=== PATIENT | female | born 1970 | race Caucasian/White ===

== ENCOUNTER → 2016-06-16 | Outpatient (CLI) | payer OTHER ==
--- NOTE | 2016-06-16 11:48 | REPMRS ---
Patient History The patient states she had a clinical breast exam in 06/03 Patient has history of other cancer at age 29. Family history of unknown cancer in paternal aunt at age 50 or over. Taking hormonal contraceptives for 25 years. Digital Woman Screen Mammo: June 16, 2016 - Exam #: [id number] Bilateral CC and MLO view(s) were taken. Technologist: Kaylene Daniel, Technologist Prior study comparison: June 05, 2015, digital woman screen mammo performed at [facility]. June 03, 2014, digital woman screen mammo performed at [facility]. May 27, 2013, digital woman screen mammo performed at [facility]. FINDINGS: The breast tissue is extremely dense which could obscure a lesion on mammography. There has been no change in the appearance of the mammogram from the prior studies. There is diffuse residual fibroglandular tissue which is fairly symmetric. There is no interval development of dominant mass, architectural distortion, or clustered microcalcification typical of malignancy. Scattered lymph nodes are seen in the axillae. No significant changes when compared with prior studies. ASSESSMENT: BI-RADS/ACR category 2 mammogram. Benign finding(s). Recommendation Routine screening mammogram in 1 year (for women over age 40). This mammogram was interpreted with the aid of an FDA-approved computer-aided dectection system. A. Negative x-ray reports should not delay biopsy if a dominant or clinically suspicious mass is present. B. Four to eight percent of cancers are not identified by mammography. C. Adenosis and dense breast may obscure an underlying neoplasm. Electronically Signed By: Jeanmarie Gilbert MD 06/16/16 [id number]
== END ==
LOC: M WHC 10:52
PROVIDERS: ATTEND Nurse Practitioner Family
DX: Z12.31 Encounter for screening mammogram for malignant neoplasm of breast (principal)

== ENCOUNTER → 2016-06-16 | Outpatient (REF) | payer OTHER | LOC: M SFHCWAGY 10:58 | PROVIDERS: ATTEND Nurse Practitioner Family | DX: Z12.4 Encounter for screening for malignant neoplasm of cervix (principal) ==

== ENCOUNTER → 2016-11-02 | Outpatient (CLI) | payer OTHER ==
[~2016-11-02] MED LIST: KEFL500C17 PO; NORE0.353 PO; TYLE500T78 PO
[2016-11-02 15:08] LABS: ALBUMIN 3.6 GM/DL (3.2-5.2); ALBUMIN/GLOBULIN RATIO 1.24 (1.00-1.93); ALKALINE PHOSPHATASE 54 U/L (45-117); ALT/SGPT 18 U/L (12-78); ANION GAP 10 MEQ/L (8-16); AST/SGOT 13 U/L (15-37); BILIRUBIN,TOTAL 0.4 MG/DL (0.2-1.0); BLOOD UREA NITROGEN 12 MG/DL (7-18); CALCIUM LEVEL 8.5 MG/DL (8.5-10.1); CARBON DIOXIDE LEVEL 25 MEQ/L (21-32); CHLORIDE LEVEL 108 MEQ/L (98-107); CHOLESTEROL LEVEL 170 MG/DL (<200); CREATININE FOR GFR 0.86 MG/DL (0.55-1.02); GLOMERULAR FILTRATION RATE > 60.0 (>58); GLUCOSE, FASTING 79 MG/DL (70-105); POTASSIUM SERUM 4.4 MEQ/L (3.5-5.1); SODIUM LEVEL 143 MEQ/L (136-145); TOTAL PROTEIN 6.5 GM/DL (6.4-8.2); TRIGLYCERIDES LEVEL 93 MG/DL (<150)
== END ==
LOC: M SMT 08:22
PROVIDERS: ATTEND Family Medicine
DX: Z78.9 Other specified health status (principal); Z13.220 Encounter for screening for lipoid disorders

== ENCOUNTER 2016-12-25 23:26 | Emergency (ER) | payer OTHER ==
[~2016-12-25] VITALS: Ht 170.2 cm; Wt 81.8 kg
[2016-12-26] MEDS ORDERED: NORE0.353 PO (01:34)
[2016-12-26] MEDS ORDERED: ADACEL/BOOSTRIX VACCINE (DIPHTH/PERTUSS/ACELL/TETANUS)0.5ML SYR (90715) IM ONE (07:00)
[2016-12-26] MEDS ORDERED: ACETAMINOPHEN 325 MG TAB PO ONE (07:00)
[2016-12-26] MEDS ORDERED: CEPHALEXIN 500 MG CAP PO ONE (07:00)
--- NOTE | 2016-12-26 07:30 | REPUSA ---
HISTORY: Trauma. COMPARISON: Not provided. TECHNIQUE: Multiple thin section helically-acquired axially-displayed and helically acquired coronall y displayed computed tomographic images of the face are obtained from the mandible through the fronta l sinuses, with images obtained at soft tissue and bone window. 2D reformatted images were performed. FINDINGS: Left facial soft tissue contusion. Chronic mucous retention cyst in the left maxillary sinus. Normal bony mineralization. No fractures. Normal orbits. Normal, clear remaining paranasal sinuses. Normal oral and nasal cavities. Normal infratemporal fossa and deep parapharyngeal spaces with normal muscles of mastication. Normal parotid and submandibular glands. IMPRESSION: Left facial soft tissue contusion. Chronic mucous retention cyst of the left maxillary sinus. Thank you for your kind referral of this patient
[2016-12-26] MEDS ORDERED: LIDOCAINE 2% W/EPIN INJ 20ML **PRES FREE INJ ONE (07:45)
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
[2016-12-26] MEDS ORDERED: KEFL500C17 PO (08:49)
[2016-12-26 09:07] VITALS: BP 143/89
== END 2016-12-26 09:10 | disposition home or self-care (01) ==
LOC: M ED 23:26
DX: S51.811A Laceration without foreign body of right forearm, initial encounter (principal); S00.83XA Contusion of other part of head, initial encounter; Y04.0XXA Assault by unarmed brawl or fight, initial encounter; Y92.410 Unspecified street and highway as the place of occurrence of the external cause; Y93.89 Activity, other specified; Y99.9 Unspecified external cause status; Z72.0 Tobacco use

== ENCOUNTER 2016-12-29 14:04 | Emergency (ER) | payer OTHER ==
[~2016-12-29] VITALS: Ht 170.2 cm; Wt 84.4 kg
[~2016-12-29 14:04] MED LIST changes: -TYLE500T78 PO
[2016-12-29] MEDS ORDERED: TYLE500T78 PO (14:12)
[2016-12-29] MEDS ORDERED: METOCLOPRAMIDE INJ 10MG/2ML VIAL (J2765) IV ONE (14:30)
[2016-12-29] MEDS ORDERED: NS 1,000 ML IV ONE (14:30)
[2016-12-29] MEDS ORDERED: diphenhydrAMINE INJ 50MG/ML VIAL (J1200) IV ONE (14:30)
--- NOTE | 2016-12-29 17:22 | REP ---
MRA BRAIN WITHOUT CONTRAST: HISTORY: Dizziness. 3D ksof-[id number] MR angiography was performed at the level of the [place]. There is no aneurysm, arteriovenous malformation or atherosclerotic lesion. Major intracranial vessels are patent. The vertebral arteries are equal in size. IMPRESSION:Normal MRA brain. Signed by Steffen Dai MD 12/30/2016 08:30 A
[2016-12-29 17:54] VITALS: BP 139/82
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
== END 2016-12-29 18:47 | disposition home or self-care (01) ==
LOC: EDBD 14:04 → M ED 14:04
DX: S06.0X0D Concussion without loss of consciousness, subsequent encounter (principal); Y04.0XXD Assault by unarmed brawl or fight, subsequent encounter; Y92.89 Other specified places as the place of occurrence of the external cause; Y93.89 Activity, other specified; Y99.9 Unspecified external cause status
CPT/HCPCS: 70544; 70551; 96361; 96374; 96375; 99283; J1200; J2765

== ENCOUNTER 2017-04-02 18:09 | Observation (INO) | payer OTHER ==
[2017-04-02] MEDS ORDERED: ISOVUE-370 76% 100ML VIAL (Q9967) As Ordered (18:23)
[2017-04-02] MEDS: MORPHINE 4 MG/ML 1ML SYRINGE IV ×2 (18:26→19:26)
[2017-04-02] MEDS: ONDANSETRON 4MG/2ML VIAL (J2405) IV ×2 (18:29→23:41)
[2017-04-02 19:02] LABS: BASO # 0.1 10^3/uL (0.0-0.2); BASO % 0.8 % (0.0-1.0); EOS # 0.2 10^3/uL (0.0-0.50); EOS % 1.7 % (0.0-3.0); HEMATOCRIT 37.3 % (36.0-47.0); HEMOGLOBIN 12.3 g/dl (12.0-16.0); IMMATURE GRANULOCYTE % 0.4 % (0-0); LYMPH # 3.5 10^3/uL (1.5-4.5); LYMPH % 34.9 % (24.0-44.0); MEAN CORPUSCULAR HEMOGLOBIN 29.6 pg (27.0-33.0); MEAN CORPUSCULAR VOLUME 89.7 fl (80.0-96.0); MONO # 0.7 10^3/uL (0.0-0.8); MONO % 6.7 % (0.0-5.0); NEUTROPHILS # 5.6 10^3/uL (1.8-7.7); NEUTROPHILS % 55.5 % (36.0-66.0); PLATELET COUNT, AUTOMATED 257 10^3/uL (150-450); RED BLOOD COUNT 4.16 10^6/uL (4.00-5.40); RED CELL DISTRIBUTION WIDTH 12.3 % (11.5-14.5); WHITE BLOOD COUNT 10.1 10^3/uL (4.0-10.0)
[2017-04-02 19:18] LABS: PROTHROMBIN TIME 12.2 SECONDS (12.4-14.5)
[2017-04-02 19:19] LABS: PARTIAL THROMBOPLASTIN TIME 30.2 SECONDS (26.8-37.9)
[2017-04-02 19:48] LABS: ANION GAP 7 MEQ/L (8-16); BLOOD UREA NITROGEN 13 MG/DL (7-18); CALCIUM LEVEL 7.9 MG/DL (8.5-10.1); CARBON DIOXIDE LEVEL 26 MEQ/L (21-32); CHLORIDE LEVEL 104 MEQ/L (98-107); CREATININE FOR GFR 1.01 MG/DL (0.55-1.02); ETHYL ALCOHOL (ETHANOL) 0.107 % (0.000-0.010); GLOMERULAR FILTRATION RATE > 60.0 (>58); GLUCOSE, FASTING 81 MG/DL (70-105); POTASSIUM SERUM 3.7 MEQ/L (3.5-5.1); SODIUM LEVEL 137 MEQ/L (136-145)
[2017-04-02] MEDS: HYDROmorphone HCL 1 MG/ML SYRINGE (J1170) IV ×3 (20:06→23:40)
[2017-04-02] MEDS ORDERED: NS 1,000 ML IV (22:42)
[2017-04-02] MEDS ORDERED: diphenhydrAMINE INJ 50MG/ML VIAL (J1200) IV (22:45)
[2017-04-02] MEDS ORDERED: NALBUPHINE HCL 10 MG/ML AMP (J2300) IV (22:45)
[2017-04-02] MEDS ORDERED: NALOXONE INJ 0.4 MG/1 ML VIAL (J2310) IV (22:45)
[2017-04-02] MEDS ORDERED: EPIDURAL/PCA KEYS XX (22:45)
[2017-04-03] MEDS: NS 1,000 ML IV ×4 (01:15→23:36)
[2017-04-03] MEDS: KETOROLAC 30 MG/ML VIAL (J1885) IV ×5 (01:53→23:23)
[2017-04-03] MEDS: MORPHINE 1MG/ML IN 0.9% NACL 100ML IV BAG IV (01:53)
[2017-04-03] MEDS: PANTOPRAZOLE 40MG TAB (PROTONIX) PO (08:48)
[2017-04-03 09:07] LABS: HEMATOCRIT 33.6 % (36.0-47.0); HEMOGLOBIN 11.3 g/dl (12.0-16.0); MEAN CORPUSCULAR HEMOGLOBIN 30.3 pg (27.0-33.0); MEAN CORPUSCULAR HGB CONC 33.6 g/dl (32.0-36.5); MEAN CORPUSCULAR VOLUME 90.1 fl (80.0-96.0); PLATELET COUNT, AUTOMATED 239 10^3/uL (150-450); RED BLOOD COUNT 3.73 10^6/uL (4.00-5.40); RED CELL DISTRIBUTION WIDTH 12.5 % (11.5-14.5); WHITE BLOOD COUNT 10.4 10^3/uL (4.0-10.0)
[2017-04-03 09:39] LABS: ALBUMIN 3.4 GM/DL (3.2-5.2); ALBUMIN/GLOBULIN RATIO 1.21 (1.00-1.93); ALKALINE PHOSPHATASE 67 U/L (45-117); ALT/SGPT 17 U/L (12-78); ANION GAP 6 MEQ/L (8-16); AST/SGOT 22 U/L (7-37); BILIRUBIN,TOTAL 0.6 MG/DL (0.2-1.0); BLOOD UREA NITROGEN 12 MG/DL (7-18); CALCIUM LEVEL 7.9 MG/DL (8.5-10.1); CARBON DIOXIDE LEVEL 26 MEQ/L (21-32); CHLORIDE LEVEL 106 MEQ/L (98-107); CREATININE FOR GFR 0.81 MG/DL (0.55-1.02); GLOMERULAR FILTRATION RATE > 60.0 (>58); GLUCOSE, FASTING 92 MG/DL (70-105); POTASSIUM SERUM 3.9 MEQ/L (3.5-5.1); SODIUM LEVEL 138 MEQ/L (136-145); TOTAL PROTEIN 6.2 GM/DL (6.4-8.2)
[2017-04-03] MEDS: ONDANSETRON 4MG/2ML VIAL (J2405) IV (13:56)
[2017-04-03] MEDS ORDERED: MORPHINE 2 MG/ML 1ML SYRINGE IV (17:15)
[2017-04-03] MEDS: PERCOCET 5MG/325MG TAB PO ×2 (18:53→23:36)
[2017-04-04] MEDS: PERCOCET 5MG/325MG TAB PO ×5 (03:36→20:37)
[2017-04-04] MEDS: IBUPROFEN 800 MG TAB PO ×3 (06:12→21:57)
[2017-04-04 07:03] LABS: HEMATOCRIT 36.1 % (36.0-47.0); HEMOGLOBIN 11.4 g/dl (12.0-16.0); MEAN CORPUSCULAR HEMOGLOBIN 29.2 pg (27.0-33.0); MEAN CORPUSCULAR HGB CONC 31.6 g/dl (32.0-36.5); MEAN CORPUSCULAR VOLUME 92.3 fl (80.0-96.0); PLATELET COUNT, AUTOMATED 220 10^3/uL (150-450); RED BLOOD COUNT 3.91 10^6/uL (4.00-5.40); RED CELL DISTRIBUTION WIDTH 12.8 % (11.5-14.5); WHITE BLOOD COUNT 9.2 10^3/uL (4.0-10.0)
[2017-04-04 07:09] LABS: CHLORIDE LEVEL 109 MEQ/L (98-107); POTASSIUM SERUM 4.2 MEQ/L (3.5-5.1); SODIUM LEVEL 139 MEQ/L (136-145)
[2017-04-04 07:11] LABS: ALBUMIN 3.2 GM/DL (3.2-5.2); ANION GAP 4 MEQ/L (8-16); BLOOD UREA NITROGEN 8 MG/DL (7-18); CALCIUM LEVEL 7.9 MG/DL (8.5-10.1); CARBON DIOXIDE LEVEL 26 MEQ/L (21-32)
[2017-04-04 07:12] LABS: GLUCOSE, FASTING 83 MG/DL (70-105)
[2017-04-04 07:18] LABS: ALKALINE PHOSPHATASE 64 U/L (45-117); ALT/SGPT 17 U/L (12-78); AST/SGOT 20 U/L (7-37); BILIRUBIN,TOTAL 0.4 MG/DL (0.2-1.0); CREATININE FOR GFR 0.86 MG/DL (0.55-1.02); GLOMERULAR FILTRATION RATE > 60.0 (>58); TOTAL PROTEIN 6.1 GM/DL (6.4-8.2)
[2017-04-04] MEDS: PANTOPRAZOLE 40MG TAB (PROTONIX) PO (07:51)
[2017-04-05] MEDS: PERCOCET 5MG/325MG TAB PO ×3 (00:26→08:38)
[2017-04-05] MEDS: IBUPROFEN 800 MG TAB PO (06:18)
[2017-04-05 08:19] LABS: HEMATOCRIT 36.6 % (36.0-47.0); HEMOGLOBIN 11.8 g/dl (12.0-16.0); MEAN CORPUSCULAR HEMOGLOBIN 29.8 pg (27.0-33.0); MEAN CORPUSCULAR HGB CONC 32.2 g/dl (32.0-36.5); MEAN CORPUSCULAR VOLUME 92.4 fl (80.0-96.0); PLATELET COUNT, AUTOMATED 197 10^3/uL (150-450); RED BLOOD COUNT 3.96 10^6/uL (4.00-5.40); RED CELL DISTRIBUTION WIDTH 12.6 % (11.5-14.5); WHITE BLOOD COUNT 8.1 10^3/uL (4.0-10.0)
[2017-04-05] MEDS: PANTOPRAZOLE 40MG TAB (PROTONIX) PO (08:37)
[2017-04-05 08:43] LABS: ALBUMIN 3.2 GM/DL (3.2-5.2); ALBUMIN/GLOBULIN RATIO 1.03 (1.00-1.93); ALKALINE PHOSPHATASE 59 U/L (45-117); ALT/SGPT 18 U/L (12-78); ANION GAP 4 MEQ/L (8-16); AST/SGOT 21 U/L (7-37); BILIRUBIN,TOTAL 0.3 MG/DL (0.2-1.0); BLOOD UREA NITROGEN 8 MG/DL (7-18); CARBON DIOXIDE LEVEL 28 MEQ/L (21-32); CHLORIDE LEVEL 109 MEQ/L (98-107); CREATININE FOR GFR 0.88 MG/DL (0.55-1.02); GLOMERULAR FILTRATION RATE > 60.0 (>58); GLUCOSE, FASTING 75 MG/DL (70-105); POTASSIUM SERUM 4.1 MEQ/L (3.5-5.1); SODIUM LEVEL 141 MEQ/L (136-145); TOTAL PROTEIN 6.3 GM/DL (6.4-8.2)
== END 2017-04-05 10:55 | disposition home or self-care (01) ==
LOC: M PED 04-03 00:45 → M ED 18:09 → M ED INP 22:42
DX: S43.101A Unspecified dislocation of right acromioclavicular joint, initial encounter (principal); S42.101A Fracture of unspecified part of scapula, right shoulder, initial encounter for closed fracture; S93.401A Sprain of unspecified ligament of right ankle, initial encounter; S80.11XA Contusion of right lower leg, initial encounter; S60.511A Abrasion of right hand, initial encounter; V03.10XA Pedestrian on foot injured in collision with car, pick-up truck or van in traffic accident, initial encounter; Y92.410 Unspecified street and highway as the place of occurrence of the external cause; K21.9 Gastro-esophageal reflux disease without esophagitis; F17.210 Nicotine dependence, cigarettes, uncomplicated; Z87.828 Personal history of other (healed) physical injury and trauma
CPT/HCPCS: 96376

== ENCOUNTER → 2017-05-02 | Outpatient (CLI) | payer OTHER ==
[2017-05-02 13:37] LABS: BASO # 0.1 10^3/uL (0.0-0.2); BASO % 0.7 % (0.0-1.0); EOS # 0.2 10^3/uL (0.0-0.50); EOS % 1.9 % (0.0-3.0); HEMATOCRIT 38.2 % (36.0-47.0); HEMOGLOBIN 12.4 g/dl (12.0-16.0); IMMATURE GRANULOCYTE % 0.2 % (0-3.0); LYMPH # 2.1 10^3/uL (1.5-4.5); LYMPH % 22.6 % (24.0-44.0); MEAN CORPUSCULAR HEMOGLOBIN 29.3 pg (27.0-33.0); MEAN CORPUSCULAR HGB CONC 32.5 g/dl (32.0-36.5); MEAN CORPUSCULAR VOLUME 90.3 fl (80.0-96.0); MONO # 0.5 10^3/uL (0.0-0.8); MONO % 5.3 % (0.0-5.0); NEUTROPHILS # 6.5 10^3/uL (1.8-7.7); NEUTROPHILS % 69.3 % (36.0-66.0); PLATELET COUNT, AUTOMATED 264 10^3/uL (150-450); RED BLOOD COUNT 4.23 10^6/uL (4.00-5.40); RED CELL DISTRIBUTION WIDTH 12.7 % (11.5-14.5); WHITE BLOOD COUNT 9.4 10^3/uL (4.0-10.0)
[2017-05-02 14:10] LABS: ERYTHROCYTE SEDIMENTATION RATE 4 mm/hr (0-20)
[2017-05-02 14:29] LABS: ESTIMATED AVERAGE GLUCOSE 105 MG/DL (60-110); HEMOGLOBIN A1c 5.3 %
[2017-05-02 14:37] LABS: FOLATE 20.4 NG/ML (>5.4); VITAMIN B12 LEVEL 327 PG/ML (247-911)
[2017-05-02 14:47] LABS: ALBUMIN 4.3 GM/DL (3.2-5.2); ALBUMIN/GLOBULIN RATIO 1.39 (1.00-1.93); ALKALINE PHOSPHATASE 63 U/L (45-117); ALT/SGPT 17 U/L (12-78); ANION GAP 11 MEQ/L (8-16); AST/SGOT 14 U/L (7-37); BILIRUBIN,TOTAL 0.5 MG/DL (0.2-1.0); BLOOD UREA NITROGEN 15 MG/DL (7-18); CARBON DIOXIDE LEVEL 24 MEQ/L (21-32); CHLORIDE LEVEL 103 MEQ/L (98-107); CREATININE FOR GFR 0.89 MG/DL (0.55-1.30); GLOMERULAR FILTRATION RATE > 60.0 (>58); GLUCOSE, FASTING 77 MG/DL (70-100); POTASSIUM SERUM 4.5 MEQ/L (3.5-5.1); RHEUMATOID FACTOR QUANT < 10.0 IU/ML (0-15.0); SODIUM LEVEL 138 MEQ/L (136-145); TOTAL PROTEIN 7.4 GM/DL (6.4-8.2)
[2017-05-03 12:55] LABS: ALBUMIN 4.68 GM/DL (3.29-5.55); ALBUMIN % 63.2 % (55.8-66.1); ALPHA-1-GLOBULIN % 4.1 % (2.9-4.9); ALPHA-2-GLOBULINS 0.69 GM/DL (0.42-0.99); ALPHA-2-GLOBULINS % 9.3 % (7.1-11.8); BETA-1-GLOBULINS 0.47 GM/DL (0.28-0.60); BETA-1-GLOBULINS % 6.4 % (4.7-7.2); BETA-2-GLOBULINS 0.37 GM/DL (0.19-0.55); GAMMA GLOBULINS 0.89 GM/DL (0.65-1.58)
== END ==
LOC: M SMT 11:48
DX: R51 Headache (principal); R41.3 Other amnesia
CPT/HCPCS: 82746

== ENCOUNTER → 2017-07-17 | Outpatient (REF) | payer OTHER ==
[2017-07-20 14:14] LABS: HPV HYBRID CAPTURE II Negative (Negative)
== END ==
LOC: M SFHCWAGY 15:24
DX: Z12.4 Encounter for screening for malignant neoplasm of cervix (principal)

== ENCOUNTER → 2017-07-17 | Outpatient (CLI) | payer OTHER | LOC: M WHC 14:44 | DX: Z12.31 Encounter for screening mammogram for malignant neoplasm of breast (principal); R92.8 Other abnormal and inconclusive findings on diagnostic imaging of breast; Z92.0 Personal history of contraception; Z85.9 Personal history of malignant neoplasm, unspecified | CPT/HCPCS: 77067 ==

== ENCOUNTER → 2017-09-18 | Outpatient (CLI) | payer MEDICAID, OTHER | LOC: M OUTALCOH 12:29 | DX: Z13.9 Encounter for screening, unspecified (principal); F10.10 Alcohol abuse, uncomplicated ==

== ENCOUNTER 2017-09-26 13:44 | Outpatient (RCR) | payer MEDICAID | END 2017-10-17 | LOC: M OUTALCOH 13:44 | DX: F10.10 Alcohol abuse, uncomplicated (principal); F17.200 Nicotine dependence, unspecified, uncomplicated ==

== ENCOUNTER → 2017-12-19 | Outpatient (CLI) | payer OTHER | LOC: M RAD 07:34 | DX: R91.1 Solitary pulmonary nodule (principal) | CPT/HCPCS: 71250 ==

== ENCOUNTER 2018-04-22 09:12 | Emergency (ER) | payer OTHER ==
[~2018-04-22] VITALS: Ht 170.2 cm; Wt 77.3 kg
[~2018-04-22 09:12] MED LIST changes: +IBUP80TA PO; +PERCOCET PO; +TYLE500T78 PO; +bcp's PO
[2018-04-22] MEDS ORDERED: KETOROLAC 30 MG/ML VIAL (J1885) IM ONE (09:30)
--- NOTE | 2018-04-22 09:54 | REP ---
Clinical: Trauma. Technique: AP, lateral, bilateral oblique views left knee. Findings: Moderate swelling is appreciated. Lateral view suggests suprapatellar effusion. No definite obvious acute fracture or dislocation identified. Subtle depression injury involving the medial tibial plateau cannot be excluded and should be correlated with physical examination. Impression: 1. Soft tissue swelling and suprapatellar effusion. 2. No definite acute fracture. 3. Cannot exclude subtle depression injury involving the medial tibial plateau and correlation with physical examination is recommended. Electronically Signed by Hunter Christianson MD 04/22/2018 09:44 A
--- NOTE | 2018-04-22 10:34 | REP ---
Clinical: Pain with recent trauma/fall. Questionable findings on x-ray. Technique: Axial noncontrast images through the left knee with coronal and sagittal re-formations. Findings: Small/moderate joint and suprapatellar effusion are identified along with mild fatty infiltration primarily noted in the posterior joint space. The osseous structures are intact and there is no evidence for acute fracture. Specifically, the tibial plateau is normal and without evidence for depressed fracture or injury. Impression: Small to moderate effusion. No evidence for acute fracture or dislocation. Electronically Signed by Hunter Christianson MD 04/22/2018 10:25 A
[2018-04-22 10:54] VITALS: BP 121/89
[2018-04-22] MEDS ORDERED: NAPR-50 PO (11:06)
[2018-04-22] MEDS ORDERED: ACETAMINOPHEN 325 MG TAB PO ONE (11:15)
--- NOTE | 2018-04-22 17:26 | ED PDOC ---
Post-Departure Follow-Up gloria camarillo and charlie faxed formal report of left knee film for fu .Gregg Cross MD Apr 22, 2018 17:26
--- NOTE | 2018-04-23 07:39 | ED PDOC ---
Post-Departure Follow-Up gloria guerra and marquise faxed formal report of ct knee for fu Gregg Cross MD Apr 23, 2018 07:39
== END 2018-04-22 11:13 | disposition home or self-care (01) ==
LOC: M ED 09:12
DX: S83.402A Sprain of unspecified collateral ligament of left knee, initial encounter (principal); X58.XXXA Exposure to other specified factors, initial encounter; Y92.9 Unspecified place or not applicable; Y93.9 Activity, unspecified; Y99.9 Unspecified external cause status; M25.462 Effusion, left knee
CPT/HCPCS: 73564; 73700; 96372; 99284; J1885

== ENCOUNTER → 2018-05-11 | Outpatient (CLI) | payer OTHER ==
[~2018-05-11] MED LIST changes: +ARNU1INH3 INH; +BUPR15TASR PO; +BUPR1TAB53; +DEBL1TAB PO; +NAPR-50 PO; +NAPR-885 PO
--- NOTE | 2018-05-11 21:19 | REP ---
Left knee MRI: Comparisons are the plain film study dated 04/22/[address] dated 04/22/2018. Studies performed with proton density and T2 data sets in sagittal, axial and coronal projections. There is a small joint effusion. I suspect there is a small Reynoso's cyst. There is circumferential soft tissue edema. The medial lateral retinacula I are intact. There is a hematoma along the medial margin of the medial gastrocnemius. There is T2 signal in the lateral tibial plateau compatible with bone bruise. I suspect there is a nondisplaced hairline fracture within this bone bruise seen to best advantage on the sagittal proton density images. The articular cartilage is unremarkable. The anterior cruciate ligament demonstrates intermediate signal in the fibers are indistinct. There is focal T2 signal near the origin of the anterior cruciate. These findings may represent anterior cruciate sprain and possible tear/ avulsion at its origin. The posterior cruciate ligament is unremarkable. There is para ligamentous T2 signal of the medial lateral collateral ligaments compatible with medial lateral collateral ligament sprain. The posterior cruciate ligament is unremarkable. The medial lateral menisci are unremarkable. Impression: Marrow edema in the lateral tibial plateau. Question nondisplaced hairline fracture within this edema. Hematoma along the medial margin of the medial gastrocnemius. Diffuse soft tissue edema. Possible anterior cruciate tear/ avulsions / sprain . Small joint effusion. Electronically Signed by Chas Paulino MD 05/11/2018 09:10 P
== END ==
LOC: M RAD 13:13
PROVIDERS: ATTEND Orthopaedic Surgery Sports Medicine
DX: M25.562 Pain in left knee (principal); M25.462 Effusion, left knee; M79.89 Other specified soft tissue disorders

== ENCOUNTER 2018-05-15 13:05 | Emergency (ER) | payer OTHER ==
[~2018-05-15] VITALS: Ht 170.2 cm; Wt 76.8 kg
[~2018-05-15 13:05] MED LIST changes: -ARNU1INH3 INH; -BUPR15TASR PO; -BUPR1TAB53; -DEBL1TAB PO; -NAPR-885 PO
[2018-05-15] MEDS ORDERED: ARNU1INH3 INH (13:19)
[2018-05-15] MEDS ORDERED: BUPR1TAB53 (13:19)
[2018-05-15] MEDS ORDERED: DEBL1TAB PO (13:19)
--- NOTE | 2018-05-15 14:37 | REP ---
Duplex extremity venous ultrasound: Left lower extremity. History: Left calf pain and swelling 3 weeks status post twisting injury. Findings: The deep veins are anechoic and fully compressible from the groin to the popliteal fossa in the left lower extremity. Color flow imaging is homogeneous. Spectral Doppler interrogation demonstrates intact respiratory variation in flow and normal manual augmentation of flow. There is no evidence of deep vein thrombosis. There is a 12.3 x 2.4 x 3.3 cm complex fluid collection visible in the left proximal calf extending caudally from the knee posteriorly. This corresponds of fluid collection seen on MRI study May 11, 2018. A small fluid collection is seen posteriorly and medially on CT study from April 22, 2018. This is felt to be most compatible with an enlarging or dissecting Reynoso's cyst. Impression: Negative left lower extremity duplex venous ultrasound. No evidence of deep vein thrombosis. Elongate complex fluid collection in the posterior medial popliteal soft tissues extending into the posterior calf compatible with dissecting Reynoso's cyst. Enlarging hematoma is a possibility as well. 12.3 x 2.4 x 3.3 cm. Electronically Signed by Javier Koch MD 05/15/2018 02:29 P
[2018-05-15 15:55] VITALS: BP 155/96
[2018-05-16] MEDS ORDERED: NAPR-885 PO (13:39)
[2018-05-16] MEDS ORDERED: BUPR15TASR PO (14:11)
== END 2018-05-15 16:07 | disposition home or self-care (01) ==
LOC: M ED 13:05
DX: M71.22 Synovial cyst of popliteal space [Baker], left knee (principal); Z91.81 History of falling; K21.9 Gastro-esophageal reflux disease without esophagitis; Z87.820 Personal history of traumatic brain injury; F17.200 Nicotine dependence, unspecified, uncomplicated; Z79.899 Other long term (current) drug therapy; Z79.1 Long term (current) use of non-steroidal anti-inflammatories (NSAID); Z79.51 Long term (current) use of inhaled steroids

== ENCOUNTER 2018-05-15 23:04 | Inpatient (IN) | payer MEDICAID, OTHER ==
[~2018-05-15] VITALS: Ht 171.4 cm; Wt 76.7 kg
[~2018-05-15 23:04] MED LIST changes: +ARNU1INH3 INH; +BUPR1TAB53; +DEBL1TAB PO
[2018-05-15 23:28] LABS: HEMATOCRIT 42.1 % (36.0-47.0); MEAN CORPUSCULAR HEMOGLOBIN 30.6 pg (27.0-33.0); MEAN CORPUSCULAR HGB CONC 33.3 g/dl (32.0-36.5); MEAN CORPUSCULAR VOLUME 92.1 fl (80.0-96.0); PLATELET COUNT, AUTOMATED 308 10^3/uL (150-450); RED BLOOD COUNT 4.57 10^6/uL (4.00-5.40); WHITE BLOOD COUNT 13.2 10^3/uL (4.0-10.0)
[2018-05-15 23:51] LABS: AMPHETAMINES LEVEL URINE NEGATIVE (NEGATIVE); BARBITURATES URINE NEGATIVE (NEGATIVE); BENZODIAZEPINES URINE NEGATIVE (NEGATIVE); CANNABINOIDS URINE NEGATIVE (NEGATIVE); COCAINE METABOLITE URINE POSITIVE (NEGATIVE); METHADONE URINE NEGATIVE (NEGATIVE); OPIATES URINE NEGATIVE (NEGATIVE); PHENCYCLIDINE URINE NEGATIVE (NEGATIVE)
[2018-05-16 00:03] LABS: ACETAMINOPHEN LEVEL < 2.0 UG/ML (10.0-30.0); ALBUMIN 4.3 GM/DL (3.2-5.2); ALT/SGPT 26 U/L (12-78); BILIRUBIN,DIRECT 0.1 MG/DL (0.0-0.2); BILIRUBIN,TOTAL 0.4 MG/DL (0.2-1.0); BLOOD UREA NITROGEN 8 MG/DL (7-18); CALCIUM LEVEL 8.8 MG/DL (8.5-10.1); CARBON DIOXIDE LEVEL 26 MEQ/L (21-32); CHLORIDE LEVEL 102 MEQ/L (98-107); CREATININE FOR GFR 0.74 MG/DL (0.55-1.30); ETHYL ALCOHOL (ETHANOL) 0.244 % (0.000-0.010); GLOMERULAR FILTRATION RATE > 60.0 (>58); GLUCOSE, FASTING 82 MG/DL (70-100); SODIUM LEVEL 135 MEQ/L (136-145); TOTAL PROTEIN 8.1 GM/DL (6.4-8.2)
[2018-05-16] MEDS ORDERED: MOM 30ML SUSPENSION UDC PO PRN (12:45)
[2018-05-16] MEDS ORDERED: LORazepam 2 MG TAB PO PRN (12:45)
[2018-05-16] MEDS ORDERED: MAALOX 30 ML SUSP *UDC PO PRN (12:45)
[2018-05-16] MEDS ORDERED: traZODone 50 MG TAB PO PRN (12:45)
[2018-05-16] MEDS ORDERED: NAPR-885 PO (13:39)
[2018-05-16] MEDS ORDERED: BUPR15TASR PO (14:11)
[2018-05-16 15:19] VITALS: BP 138/98
[2018-05-16] MEDS: ACETAMINOPHEN TAB 650MG DOSE (2X325MG) PO PRN ×2 (15:36→21:26)
[2018-05-16] MEDS: THIAMINE 100 MG TAB PO SCH ×2 (17:00→21:00)
[2018-05-16] MEDS: FOLIC ACID 1 MG TAB PO SCH (17:00)
[2018-05-16] MEDS ORDERED: NICOTINE 21MG/24HR 1 EA TRANSDERMAL TD ONE (17:45)
[2018-05-16 20:08] VITALS: BP 138/74
[2018-05-17 06:27] VITALS: BP 130/90
[2018-05-17] MEDS: ACETAMINOPHEN TAB 650MG DOSE (2X325MG) PO PRN (07:25)
[2018-05-17 07:50] VITALS: BP 130/90
[2018-05-17] MEDS ORDERED: INFLUENZA QUADRIVALENT PF VACCINE 0.5ML SYRINGE (90686) IM ONE (09:00)
--- NOTE | 2018-05-17 09:23 | HPEPDOC ---
[facility] Medical History & Physical Date of Admission May 16, 2018 History and Physical PCP: Huyen Padgett MD ATTENDING: Dr. Bassam Vega HPI: 47 yo F admitted to [facility] for depressive disorder, being medically examined today. No acute medical complaints today. Denies any fevers, chills, weakness, fatigue, LAMBERT, CP, SOB, cough, palpitations, abdominal pain, N/V/D or changes in bowel or bladder habits. PMHx: Anxiety Depression History of SI Alcohol use Asthma PSHX: Right foot surgery SOCHX: Resides in: [facility] Marital Status: Kids: 2 Employment: Home health aide Tobacco use: 5 per day ETOH: States 2 days per week 2-7 drinks Illicit Drugs: Denies IV Drug Use: Denies Tattoos done unprofessionally: Denies FAMHX: Mother: Alive, diabetes, hypertension, COPD Father: Alive, retention Siblings: One sister, 2 brothers Alive, one brother with lung disease. One brother , endocarditis. Children: Alive, well ROS: As noted in HPI, otherwise 11pt ROS of systems reviewed and remarkable only for LMP unknown per patient related to OCP use. Patient states she slipped and fell on ice approximately 2 weeks ago with injury to her left knee and left lower extremity area. She has been seen by [facility] orthopedics, Dr. Kapoor. Patient states she had an appointment with orthopedics yesterday that she missed. This was to review MRI results. PE: GEN: 47yoF, appears stated age. Well-nourished, well developed. No acute dis tress. Alert and oriented x 3. Pleasant, interactive. HEENT: Normocephalic, atraumatic. Pupils are equal, round, and reactive to light. Extraocular movements are intact. No nystagmus appreciated. Sclera are nonicteric. Conjunctiva without injection. Nose midline. Nasal turbinates without bogginess. EACs both patent BL. TMs both visualized and narayan with good cone of light, no bulging or erythema. No facial asymmetry. Moist mucous membranes. Dentition fair. Pharynx pink and moist, no cobblestoning. Neck supp le, trachea midline. No lymphadenopathy or thyromegaly appreciated. CHEST: Regular rate and rhythm, +S1, +S2 LUNGS: Clear to auscultation bilaterally. No wheezes, rales, or rhonchi. Breathing appears symmetric and easy. Patient is speaking in full sentences. No accessory muscle use. ABD: Round, soft, non-tender, non-distended. +Bowel sounds throughout. No rebound or guarding. No costovertebral angle tenderness. EXT: Pulses 2+ bilaterally dorsalis pedis and radial. TTP around the left knee with mild edema noted. Ecchymosis noted LLE pretibial and ankle area. No calf TTP, no cording, erythema, warmth. SKIN: [place], dry, warm. Capillary refill <2sec. No rashes. NEURO: Alert and oriented x 3. Cranial nerves III-XII are intact. No focal deficits appreciated. EKG: Pending MRI left knee 05/11/18 Marrow edema in the lateral tibial plateau. Question nondisplaced hairline fracture within this edema. Hematoma along the medial margin of the medial gastrocnemius. Diffuse soft tissue edema. Possible anterior cruciate tear/ avulsions / sprain . Small joint effusion LE U/S Negative left lower extremity duplex venous ultrasound. No evidence of deep vein thrombosis. Elongate complex fluid collection in the posterior medial popliteal soft tissues extending into the posterior calf compatible with dissecting Reynoso's cyst. Enlarging hematoma is a possibility as well. 12.3 x 2.4 x 3.3 cm. Electronically Signed by Javier Koch MD 05/15/2018 02:29 P A&P: 47 yo F admitted to [facility] for depressive disorder 1. Psych. Plan per Psychiatry. Obtain baseline EKG to assure the safety of psychiatric medications as they can prolong the QT interval. 2. Nicotine dependence. Patch available. 3. Leukocytosis. Patient is afebrile. Possible stress response. Check CBC in a.m. 4. Mild hyponatremia. Sodium noted to be 135. Oral intake has improved. Recheck BMP in a.m. 5. Status post fall approximately 2 weeks ago with left knee pain and difficulty with ambulation. MRI left knee obtained indicates possible lateral tibial plateau hairline fracture, nondisplaced. Also possible ACL tear or sprain. Ultrasound with dissecting Reynoso's cyst. Orthopedic consult requested, discussed with Chio Snyder NP, orthopedics will evaluate patient later today. Mgmt as per Orthopedics. WB as per Orthopedic recommendation. Outpt F/U as per Orthopedics. Tylenol 650 mg every 6 hours as needed. 6. Follow up with PCP on discharge. 7. Substance abuse. Management per psychiatry. Continue with MVI, Thiamine, and Folic Acid supplementation. 8. Continue OCP. 9. Asthma. Continue Arnuity ellipta from home. Albuterol 2 puffs every 4 hours as needed. 10. Staff member Joan DAWSON present throughout exam. Vital Signs Vital Signs Date Time Temp Pulse Resp B/P (MAP) Pulse Ox O2 Delivery O2 Flow Rate FiO2 05/17/18 07:50 70 130/90 05/17/18 06:27 97.5 18 05/16/18 15:19 98 05/16/18 14:55 Room Air Laboratory Data Labs 24H Item Value Date Time White Blood Count 13.2 10^3/uL H 05/15/182310 Red Blood Count 4.57 10^6/uL 05/15/182310 Hemoglobin 14.0 g/dl 05/15/182310 Hematocrit 42.1 % 05/15/182310 Mean Corpuscular Volume 92.1 fl 05/15/182310 Mean Corpuscular Hemoglobin 30.6 pg 05/15/182310 Mean Corpuscular Hemoglobin Concent 33.3 g/dl 05/15/182310 Red Cell Distribution Width 13.2 % 05/15/182310 Platelet Count 308 10^3/uL 05/15/182310 Nucleated Red Blood Cells % (auto) 0.0 % 05/15/182310 Sodium Level 135 MEQ/L L 05/15/182310 Potassium Level 4.0 MEQ/L 05/15/182310 Chloride Level 102 MEQ/L 05/15/182310 Carbon Dioxide Level 26 MEQ/L 05/15/182310 Anion Gap 7 MEQ/L L 05/15/182310 Blood Urea Nitrogen 8 MG/DL 05/15/182310 Creatinine 0.74 MG/DL 05/15/182310 Glomerular Filtration Rate > 60.0 05/15/182310 Fasting Glucose 82 MG/DL 05/15/182310 Calcium Level 8.8 MG/DL 05/15/182310 Total Bilirubin 0.4 MG/DL 05/15/182310 Direct Bilirubin 0.1 MG/DL 05/15/182310 Aspartate Amino Transf (AST/SGOT) 23 U/L 05/15/182310 Alanine Aminotransferase (ALT/SGPT) 26 U/L 05/15/182310 Alkaline Phosphatase 79 U/L 05/15/182310 Total Protein 8.1 GM/DL 05/15/182310 Albumin 4.3 GM/DL 05/15/182310 Albumin/Globulin Ratio 1.13 05/15/182310 Thyroid Stimulating Hormone (TSH) 2.900 uIU/ML 05/15/182310 Salicylates Level 3.0 MG/DL L 05/15/182310 Urine Opiates Screen NEGATIVE 05/15/182310 Urine Methadone Screen NEGATIVE 05/15/182310 Acetaminophen Level < 2.0 UG/ML L 05/15/182310 Urine Barbiturates Screen NEGATIVE 05/15/182310 Urine Phencyclidine Screen NEGATIVE 05/15/182310 Urine Amphetamines Screen NEGATIVE 05/15/182310 Urine Benzodiazepines Screen NEGATIVE 05/15/182310 Urine Cocaine Metabolite Screen POSITIVE H 05/15/182310 Urine Cannabinoids Screen NEGATIVE 05/15/182310 Ethyl Alcohol Level 0.244 % H 05/15/182310 Home Medications Scheduled (Deblitane) 0.35 Mg Tab, 0.35 MG PO DAILY (Arnuity Ellipta) 200 Mcg/Act Inh, 1 PUFF INH DAILY Bupropion HCl (Bupropion HCl Sr) 150 Mg Tab, 150 MG PO BID Scheduled PRN Naproxen (Naproxen) 500 Mg Tab, 500 MG PO BID PRN for PAIN Allergies Coded Allergies: No Known Drug Allergy (Unverified Allergy, Unknown, 12/29/16) Alma Garcia May 17, 2018 09:23
[2018-05-17] MEDS ORDERED: ALBUTEROL 90 MCG/ACT 8GM HFA INHALER INH PRN (09:30)
[2018-05-17] MEDS: NICOTINE 21MG/24HR 1 EA TRANSDERMAL TD SCH (09:47)
[2018-05-17] MEDS: THIAMINE 100 MG TAB PO SCH ×2 (09:47→21:19)
[2018-05-17] MEDS: FOLIC ACID 1 MG TAB PO SCH (09:47)
[2018-05-17] MEDS: MULTIVITAMINS/MINERALS THERAP 1 TAB PO SCH (09:47)
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
[2018-05-17] MEDS: NAPROXEN 250 MG TAB PO SCH ×2 (12:17→21:19)
[2018-05-17 18:00] VITALS: BP 146/82
[2018-05-17 20:00] VITALS: BP 146/82
[2018-05-18] MEDS ORDERED: UNRESOLVED PATIENT OWN MED ORDER XX SCH (00:01)
[2018-05-18 06:10] VITALS: BP 150/99
[2018-05-18 06:11] VITALS: BP 150/99
[2018-05-18 08:41] LABS: HEMOGLOBIN 13.5 g/dl (12.0-15.5); MEAN CORPUSCULAR HEMOGLOBIN 30.8 pg (27.0-33.0); MEAN CORPUSCULAR HGB CONC 32.1 g/dl (32.0-36.5); MEAN CORPUSCULAR VOLUME 95.9 fl (80.0-96.0); PLATELET COUNT, AUTOMATED 258 10^3/uL (150-450); RED BLOOD COUNT 4.38 10^6/uL (4.00-5.40); WHITE BLOOD COUNT 9.9 10^3/uL (4.0-10.0)
--- NOTE | 2018-05-18 08:48 | CR ---
DATE OF CONSULTATION: 05/18/2018 CHIEF COMPLAINT: Right knee pain and injury. HISTORY OF PRESENT ILLNESS: This is a 47-year-old female [facility]. I had seen her previously in clinic for a slip and fall on ice. CT had been obtained by another provider that showed questionable anterior medial tibial plateau depressed fragment and given the severe nature of the twist and fall and persistent pain, I had ordered an MRI. Subsequently on Monday she was seen by the emergency physician who called me and I had previously seen her. 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 She is consulted to me again in hospital for persistent right knee. PAST MEDICAL HISTORY: Anxiety. Depression. History of suicidal ideation (SI). Alcohol use. Asthma. MEDICATIONS: - albuterol - multivitamin - nicotine - Naproxen - trazodone - magnesium hydroxide - Mylanta - lorazepam - thiamine - folic acid NO KNOWN DRUG ALLERGIES. SURGICAL HISTORY: Right foot surgery. SOCIAL HISTORY: Lives in [place]. Marital status: Is . Has two kids. Works as a home health aide. Uses five cigarettes a day and does use alcohol two days a week. Denies illicit drug use. PHYSICAL EXAMINATION: Well-appearing female who looks her stated age. She is alert, oriented times three. Mood and affect seems to be at baseline. She is easy to converse with. Gait and station: She has an antalgic gait. She walks with a little bit of a bent knee gait but otherwise her station is normal. Lower extremity alignment is normal. Inspection of lower extremities reveal no obvious overlying swelling, redness or deformity. There is some mild ecchymosis tracking down the posterior aspect of her right calf but no calf tenderness. No lesions on palpation of her calf. She is able to wiggle her toes, dorsiflex and plantarflex her feet on both sides. Both feet are warm and well-perfused. Good pedal pulses. She has normal sensation in both feet in superficial and deep peroneal nerves as well as saphenous, sural and tibial. Examination of the knee revealed nearly full range of motion 0-120 degrees little bit stiff in flexion. Perhaps a small effusion. Other side had range of motion 0-135 degrees. There is a small amount of pain to the lateral tibial plateau on palpation as well as some mild clinical laxity to Yu and anterior drawer. This was difficult to fully assess as just like when I saw in clinic, she was quite sore but I did think there was some side to side difference mildly at the ACL with a bit of a lax end point. MRI was reviewed. This shows a lateral tibial plateau bone bruise/very undisplaced potential fracture. This is transverse in nature without evidence of intra-articular involvement or widening. There is also a high-grade sprain versus complete tear of the ACL. ASSESSMENT: This 47-year-old female with likely ACL injury and lateral tibial plateau bone bruise. This can take quite a bit of time to resolve and for her pain to get better. No role really for ACL reconstruction as typically these stiffen up and do not result in any kind of laxity of the knee but for now, for protection, we will place her into a hinged knee brace unlocked which she has already obtained. When she is in bed, I have encouraged her to get back her full extension and to avoid putting pillows under the knee. She can be out of the brace when she is in bed but wearing the brace when she is up and ambulating. Weightbearing as tolerated. She has a follow-up with the pain clinic coming this Monday in 3 days. I am happy to see her at that point or if she needs to reschedule at some point in the near future so that we can discuss more about the nature of the injury and the rehabilitation. VICENTE
[2018-05-18] MEDS ORDERED: ENTER DRUG NAME HERE (PATIENT'S OWN MED) INH SCH (09:00)
[2018-05-18 09:06] LABS: BLOOD UREA NITROGEN 13 MG/DL (7-18); CALCIUM LEVEL 8.9 MG/DL (8.5-10.1); CARBON DIOXIDE LEVEL 31 MEQ/L (21-32); CHLORIDE LEVEL 103 MEQ/L (98-107); CREATININE FOR GFR 0.83 MG/DL (0.55-1.30); GLOMERULAR FILTRATION RATE > 60.0 (>58); GLUCOSE, FASTING 76 MG/DL (70-100); POTASSIUM SERUM 4.6 MEQ/L (3.5-5.1); SODIUM LEVEL 140 MEQ/L (136-145)
[2018-05-18] MEDS: FOLIC ACID 1 MG TAB PO SCH (09:42)
[2018-05-18] MEDS: NAPROXEN 250 MG TAB PO SCH (09:43)
[2018-05-18] MEDS: THIAMINE 100 MG TAB PO SCH (09:43)
[2018-05-18] MEDS: NICOTINE 21MG/24HR 1 EA TRANSDERMAL TD SCH (09:43)
[2018-05-18] MEDS: MULTIVITAMINS/MINERALS THERAP 1 TAB PO SCH (09:43)
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
--- NOTE | 2018-05-18 14:14 | ECGEPIP ---
Stationary ECG Study [facility] Test Date: 2018-05-17 Pat Name: SADIE CHASE Department: Room: [place] [address] Gender: F Composing Room Supervisor: ADRIANA : 1970 Requested By: Alma Garcia Order Number: [id number] Reading MD: Bernard Alvarado Measurements Intervals [place] Rate: 73 P: NM: 0 QRS: 59 QRSD: 99 T: 49 QT: 380 QTc: 419 Interpretive Statements Ectopic atrial rhythm changing over to sinus rhythm. Otherwise normal-appearing ECG. ABNORMAL RHYTHM ECG No prior ECG available for comparison at the time of interpretation. Electronically Signed On 05-18-2018 14:14:04 EST by Bernard Alvarado
== END 2018-05-18 11:01 | disposition home or self-care (01) | DRG 754 ==
LOC: M ED 23:04 → M ED INP 05-16 12:35 → M PSY 05-16 15:12
PROVIDERS: ADMIT Psychiatry & Neurology Psychiatry; ATTEND Psychiatry & Neurology Psychiatry
DX: F32.9 Major depressive disorder, single episode, unspecified (principal); E87.1 Hypo-osmolality and hyponatremia; R45.851 Suicidal ideations; F10.10 Alcohol abuse, uncomplicated; F14.90 Cocaine use, unspecified, uncomplicated; F19.94 Other psychoactive substance use, unspecified with psychoactive substance-induced mood disorder; J45.909 Unspecified asthma, uncomplicated; F41.9 Anxiety disorder, unspecified; F17.200 Nicotine dependence, unspecified, uncomplicated; D72.829 Elevated white blood cell count, unspecified

== ENCOUNTER → 2018-07-18 | Outpatient (CLI) | payer OTHER ==
[~2018-07-18] MED LIST changes: +BUPR15TASR PO; -NAPR-50 PO; +NAPR-837 PO; +NAPR-885 PO
--- NOTE | 2018-07-19 10:33 | REPMRS ---
Patient History The patient states she had a clinical breast exam in 07/2018. Patient has history of other cancer at age 29. No known family history of cancer. Taking hormonal contraceptives for 27 years. 3D TOMOSYNTHESIS WAS PERFORMED. Digital Woman Screen Mammo: July 19, 2018 - Exam #: [id number] Bilateral CC and MLO view(s) were taken. Technologist: Mami Trinh, Technologist Prior study comparison: July 17, 2017, digital woman screen mammo performed at [facility]. June 16, 2016, digital woman screen mammo performed at [facility]. FINDINGS: The breast tissue is extremely dense which could obscure a lesion on mammography. There is no evidence of cancer on this mammogram. No significant changes when compared with prior studies. Assessment: BI-RADS/ACR category 2 mammogram. Benign Findings. Recommendation Routine screening mammogram of both breasts in 1 year (for women over age 40). This mammogram was interpreted with the aid of an FDA-approved computer-aided dectection system. Electronically Signed By: Chas Lima MD 07/19/18 1032
== END ==
LOC: M WHC 06:48
PROVIDERS: ATTEND Nurse Practitioner Family
DX: Z12.31 Encounter for screening mammogram for malignant neoplasm of breast (principal); Z79.3 Long term (current) use of hormonal contraceptives; Z85.9 Personal history of malignant neoplasm, unspecified

== ENCOUNTER → 2018-09-29 | Outpatient (CLI) | payer OTHER ==
--- NOTE | 2018-09-29 15:44 | REP ---
Left rib series: Four views including PA chest. History: Left rib pain. Comparison study is from January 29, 2014. Findings: PA chest radiograph is normal. There is no evidence of infiltrate and pneumothorax or hydrothorax. Mediastinum is not widened. Heart size is normal. Multiple views of the left rib cage show intact left ribs. No rib fracture or bony destructive rib lesion is seen. Impression: Negative left rib radiographs. Electronically Signed by Javier Koch MD 09/29/2018 03:36 P
== END ==
LOC: M WUC 13:33
PROVIDERS: ATTEND Physician Assistant
DX: S29.011A Strain of muscle and tendon of front wall of thorax, initial encounter (principal)

== ENCOUNTER → 2019-07-22 | Outpatient (REF) | payer OTHER | LOC: M SFHCWAGY 16:57 | PROVIDERS: ATTEND Nurse Practitioner Family | DX: Z12.4 Encounter for screening for malignant neoplasm of cervix (principal) ==

== ENCOUNTER → 2019-07-22 | Outpatient (CLI) | payer OTHER ==
--- NOTE | 2019-07-22 14:32 | REPMRS ---
Patient History The patient states she had a clinical breast exam in July 2019.No known family history of cancer. Taking hormonal contraceptives for 27 years. Digital Woman Screen Mammo: July 22, 2019 - Exam #: [id number] Bilateral CC and MLO view(s) were taken. Technologist: Carla Ramsey, Technologist Prior study comparison: July 19, 2018, bilateral digital woman screen mammo performed at [facility]. July 17, 2017, digital woman screen mammo performed at [facility]. June 16, 2016, digital woman screen mammo performed at [facility]. FINDINGS: The breast tissue is extremely dense which could obscure a lesion on mammography. The Volpara volumetric breast density category is: D. There is an extremely dense symmetrical pattern of residual fibroglandular tissue. There has been no change in the appearance of the mammogram from the previous studies. There is no interval development of dominant mass, archetectural distortion, or grouped microcalcifications suggestive of malignancy. 3-D tomosynthesis shows no additional findings. Assessment: BI-RADS/ACR category 1 mammogram. Negative Mammogram. Recommendation Routine screening mammogram of both breasts in 1 year (for women over age 40). This patient's Lifetime Breast Cancer RIsk is estimated at 9.4 %. This mammogram was interpreted with the aid of an FDA-approved computer-aided dectection system. Electronically Signed By: Abraham Koch MD 07/22/19 [id number]
== END ==
LOC: M WHC 13:37
PROVIDERS: ATTEND Nurse Practitioner Family
DX: Z12.31 Encounter for screening mammogram for malignant neoplasm of breast (principal)

== ENCOUNTER → 2020-07-06 | Outpatient (REF) | payer OTHER ==
[2020-07-06 13:44] LABS: BASO # 0.1 10^3/uL (0.0-0.2); BASO % 0.7 % (0.0-1.0); EOS # 0.1 10^3/uL (0.0-0.5); EOS % 1.1 % (0.0-3.0); HEMOGLOBIN 14.3 g/dl (12.0-15.5); LYMPH # 2.2 10^3/uL (1.5-5.0); LYMPH % 18.3 % (24.0-44.0); MEAN CORPUSCULAR HGB CONC 31.8 g/dl (32.0-36.5); MEAN CORPUSCULAR VOLUME 94.3 fl (80.0-96.0); MONO # 0.8 10^3/uL (0.0-0.8); MONO % 6.5 % (2.0-8.0); NEUTROPHILS # 8.6 10^3/uL (1.5-8.5); PLATELET COUNT, AUTOMATED 339 10^3/uL (150-450); RED BLOOD COUNT 4.77 10^6/uL (4.00-5.40); WHITE BLOOD COUNT 11.8 10^3/uL (4.0-10.0)
[2020-07-06 17:50] LABS: ALBUMIN 4.4 GM/DL (3.2-5.2); BILIRUBIN,TOTAL 0.6 MG/DL (0.2-1.0); CALCIUM LEVEL 9.4 MG/DL (8.5-10.1); CREATININE FOR GFR 1.12 MG/DL (0.55-1.30); POTASSIUM SERUM 4.8 MEQ/L (3.5-5.1); THYROID STIMULATING HORMONE 1.78 uIU/ML (0.358-3.740)
[2020-07-06 17:51] LABS: TOTAL 25(OH) VITAMIN D 48.7 NG/ML (30.0-100.0)
== END ==
LOC: M SFHCPLAZ 10:03
PROVIDERS: ATTEND Family Medicine
DX: R53.83 Other fatigue (principal); E55.9 Vitamin D deficiency, unspecified

== ENCOUNTER → 2020-07-13 | Outpatient (REF) | payer OTHER ==
[2020-07-13 15:27] LABS: BASO # 0.1 10^3/uL (0.0-0.2); BASO % 0.8 % (0.0-1.0); EOS # 0.2 10^3/uL (0.0-0.5); EOS % 2.6 % (0.0-3.0); HEMOGLOBIN 12.3 g/dl (12.0-15.5); LYMPH # 2.6 10^3/uL (1.5-5.0); LYMPH % 33.7 % (24.0-44.0); MEAN CORPUSCULAR HEMOGLOBIN 29.7 pg (27.0-33.0); MEAN CORPUSCULAR HGB CONC 31.5 g/dl (32.0-36.5); MEAN CORPUSCULAR VOLUME 94.2 fl (80.0-96.0); MONO # 0.6 10^3/uL (0.0-0.8); MONO % 7.9 % (2.0-8.0); NEUTROPHILS # 4.2 10^3/uL (1.5-8.5); NEUTROPHILS % 54.6 % (36.0-66.0); PLATELET COUNT, AUTOMATED 283 10^3/uL (150-450); RED BLOOD COUNT 4.14 10^6/uL (4.00-5.40); WHITE BLOOD COUNT 7.6 10^3/uL (4.0-10.0)
[2020-07-13 15:53] LABS: BLOOD UREA NITROGEN 15 MG/DL (7-18); CALCIUM LEVEL 8.6 MG/DL (8.5-10.1); CARBON DIOXIDE LEVEL 27 MEQ/L (21-32); CHLORIDE LEVEL 106 MEQ/L (98-107); CREATININE FOR GFR 0.99 MG/DL (0.55-1.30); GLOMERULAR FILTRATION RATE > 60.0 (>58); GLUCOSE, FASTING 105 MG/DL (70-100); POTASSIUM SERUM 4.1 MEQ/L (3.5-5.1); SODIUM LEVEL 140 MEQ/L (136-145)
== END ==
LOC: M PLALAB 14:40
PROVIDERS: ATTEND Family Medicine
DX: D72.829 Elevated white blood cell count, unspecified (principal); R94.4 Abnormal results of kidney function studies

== ENCOUNTER → 2020-07-22 | Outpatient (CLI) | payer OTHER ==
--- NOTE | 2020-07-22 08:17 | REP ---
INDICATION: PULMONARY NODULE COMPARISON: 12/19/2017 TECHNIQUE: Axial noncontrast images from the thoracic inlet to the upper abdomen with coronal and sagittal reformations. This CT examination was performed using the following dose reduction techniques: Automated exposure control, adjustment of mA and/or kv according to the patient's size, and use of iterative reconstruction technique. FINDINGS: The lung tavarez demonstrate mild diffuse subpleural fibrosis and chronic bibasilar interstitial changes similar to prior examination. 8 mm noncalcified pulmonary nodule in the subpleural right middle lobe and smaller adjacent 3 mm nodule remains stable compared to 2018. no new acute consolidation, significant nodule or mass. No effusion. No pneumothorax. No obvious adenopathy. Thoracic aorta, pulmonary vasculature, and heart/pericardium are normal. Surrounding musculoskeletal structures are intact and without acute osseous abnormality. Limited upper abdomen demonstrates normal bilateral adrenal glands. IMPRESSION: 1. Stable 8 mm and 3 mm noncalcified nodules along the subpleural right middle lobe. 2. Relatively stable moderate chronic subpleural fibrosis and bibasilar interstitial changes. 3. No acute mediastinal or pleuroparenchymal process appreciated. <Electronically signed by Hunter Christianson > 07/22/20 [id number]
== END ==
LOC: M RAD 07:10
PROVIDERS: ATTEND Family Medicine
DX: R91.8 Other nonspecific abnormal finding of lung field (principal); J84.10 Pulmonary fibrosis, unspecified

== ENCOUNTER → 2020-08-05 | Outpatient (CLI) | payer OTHER ==
--- NOTE | 2020-08-05 15:28 | REPMRS ---
Patient History The patient states she had a clinical breast exam 08-05-2020. Patient has history of other cancer at age 29. No known family history of cancer. Taking hormonal contraceptives for 28 years. Patient states no breast complaints today. Patient has signed MRS History Sheet. Digital Woman Screen Mammo: August 05, 2020 - Exam #: [id number] Bilateral CC and MLO view(s) were taken. Technologist: Siomara Greenberg, Adult Educator Prior study comparison: July 22, 2019, bilateral digital woman screen mammo performed at [facility]. July 19, 2018, bilateral digital woman screen mammo performed at [facility]. July 17, 2017, digital woman screen mammo performed at [facility]. FINDINGS: The breast tissue is extremely dense which could obscure a lesion on mammography. The Volpara volumetric breast density category is: D. There is an extremely dense symmetrical pattern of residual fibroglandular tissue. There has been no change in the appearance of the mammogram from the previous studies. There is no interval development of dominant mass, archetectural distortion, or grouped microcalcifications suggestive of malignancy. 3-D tomosynthesis shows no additional findings. Assessment: BI-RADS/ACR category 1 mammogram. Negative Mammogram. Recommendation Routine screening mammogram of both breasts in 1 year (for women over age 40). This patient's [facility] Lifetime Breast Cancer RIsk is estimated at 9.2 %. This mammogram was interpreted with the aid of an FDA-approved computer-aided dectection system. Electronically Signed By: Abraham Koch MD 08/05/20 1167
== END ==
LOC: M WHC 13:27
PROVIDERS: ATTEND Nurse Practitioner Women's Health
DX: Z12.31 Encounter for screening mammogram for malignant neoplasm of breast (principal)

== ENCOUNTER → 2020-08-05 | Outpatient (REF) | payer OTHER | LOC: M SFHCWAGY 16:53 | PROVIDERS: ATTEND Nurse Practitioner Women's Health | DX: Z12.4 Encounter for screening for malignant neoplasm of cervix (principal); R87.610 Atypical squamous cells of undetermined significance on cytologic smear of cervix (ASC-US) ==

== ENCOUNTER → 2020-08-26 | Outpatient (CLI) | payer OTHER | LOC: M PLALAB 09:59 | PROVIDERS: ATTEND Physician Assistant Medical | DX: R19.7 Diarrhea, unspecified (principal) ==

== ENCOUNTER → 2020-09-09 | Outpatient (REF) | payer OTHER | LOC: M SFHCWAGY 18:44 | PROVIDERS: ATTEND Obstetrics & Gynecology | DX: R87.610 Atypical squamous cells of undetermined significance on cytologic smear of cervix (ASC-US) (principal) ==

== ENCOUNTER → 2020-10-02 | Outpatient (REF) | payer OTHER | LOC: M LAB REF 10:11 | PROVIDERS: ATTEND Physician Assistant Medical | DX: R19.7 Diarrhea, unspecified (principal) ==

== ENCOUNTER → 2020-10-09 | Outpatient (REF) | payer OTHER ==
[~2020-10-09] MED LIST changes: +PANT40TA29 PO
[2020-10-09 22:50] LABS: APPEARANCE, URINE CLOUDY (CLEAR); BACTERIA, URINE AUTO 1+ (NEGATIVE); BILIRUBIN, URINE AUTO NEGATIVE (NEGATIVE); BLOOD, URINE BLOOD 2+ (NEGATIVE); COLOR, URINE YELLOW (YELLOW); GLUCOSE, URINE (UA) AUTO NEGATIVE (NEGATIVE); KETONE, URINE AUTO NEGATIVE (NEGATIVE); LEUKOCYTE ESTERASE, URINE AUTO 3+ (NEGATIVE); NITRITE, URINE AUTO POSITIVE (NEGATIVE); PROTEIN, URINE AUTO 1+ mg/dL (NEGATIVE); RBC, URINE AUTO 7 /HPF (0-3); SPECIFIC GRAVITY URINE AUTO 1.009 (1.002-1.035); SQUAMOUS EPITHELIAL CELL UR AU 3 /HPF (0-6); UROBILINOGEN, URINE AUTO 0.2 mg/dL (0.0-2.0); WBC, URINE AUTO 161 /HPF (0-3)
== END ==
LOC: M LAB REF 22:17
PROVIDERS: ATTEND Physician Assistant
DX: R30.0 Dysuria (principal)

== ENCOUNTER → 2020-10-12 | Outpatient (CLI) | payer OTHER | LOC: M LABSMTC 09:06 | PROVIDERS: ATTEND Anesthesiology | DX: Z01.812 Encounter for preprocedural laboratory examination (principal); Z20.822 Contact with and (suspected) exposure to COVID-19 ==

== ENCOUNTER 2020-10-16 09:18 | Day surgery (SDC) | payer OTHER ==
[~2020-10-16] VITALS: Ht 170.2 cm; Wt 76.7 kg
[~2020-10-16 09:18] MED LIST changes: +NS 1,000 ML IV ONE
[2020-10-16] MEDS ORDERED: propofoL 200 MG/20 ML VIAL As Ordered ONE (10:13)
[2020-10-16] MEDS ORDERED: LIDOCAINE 2% 100MG/5ML SDV (FOR ANES.) As Ordered ONE (10:14)
--- NOTE | 2020-10-16 10:43 | ROOR ---
Patient Name: Karon Hawkins Procedure Date: 10/16/2020 10:25 AM Date of : 1970 Age: 50 Room: [facility] Gender: Female Note Status: Finalized Procedure: Upper GI endoscopy Indications: Heartburn, Suspected gastroparesis, Regurgitation Providers: Bernard Walton MD Referring MD: Huyen Padgett MD Requesting Provider: Medicines: Monitored Anesthesia Care Complications: No immediate complications. Procedure: Pre-Anesthesia Assessment: - The heart rate, respiratory rate, oxygen saturations, blood pressure, adequacy of pulmonary ventilation, and response to care were monitored throughout the procedure. The Endoscope was introduced through the mouth, and advanced to the second part of duodenum. The upper GI endoscopy was accomplished without difficulty. The patient tolerated the procedure well. Findings: The examined esophagus was normal. Biopsies were taken with a cold forceps for histology. Very small (insignificant) Hiatal Hernia. The entire examined stomach was normal. Biopsies were taken with a cold forceps for histology. The examined duodenum was normal. Impression: - Normal esophagus. Biopsied. - Very small Hiatal Hernia. - Normal stomach. Biopsied. - Normal examined duodenum. Recommendation: - Continue present medications. - Telephone endoscopist for pathology results in 2 weeks. - For possible gastroparesis: - Eat smaller, more frequent meals throughout the day. - Low fat diet. - Liquid/soft foods are tolerated better than solid foods. - Low fiber/well cooked vegetables are tolerated better than high fiber/fibrous foods/raw vegetables. - Avoid medications that inhibit gastric/intestinal motility such as narcotic medications. Procedure Code(s): --- Professional --- 36515, Esophagogastroduodenoscopy, flexible, transoral; with biopsy, single or multiple Diagnosis Code(s): --- Professional --- R11.10, Vomiting, unspecified R12, Heartburn CPT copyright 2019 [employer]. All rights reserved. The codes documented in this report are preliminary and upon design printing machine set up operator review may be revised to meet current compliance requirements. Bernard Walton MD Bernard Walton MD 10/16/2020 10:43:04 AM Electronically signed by Bernard Walton MD Number of Addenda: 0 Note Initiated On: 10/16/2020 10:25 AM Estimated Blood Loss: Estimated blood loss: none.
--- NOTE | 2020-10-16 10:59 | ROOR ---
Patient Name: Karon Hawkins Procedure Date: 10/16/2020 10:26 AM Date of : 1970 Age: 50 Room: [facility] Gender: Female Note Status: Finalized Procedure: Colonoscopy Indications: Screening for colorectal malignant neoplasm, Incidental diarrhea noted Providers: Bernard Walton MD Referring MD: Huyen Padgett MD Requesting Provider: Medicines: Monitored Anesthesia Care Complications: No immediate complications. Procedure: Pre-Anesthesia Assessment: - The heart rate, respiratory rate, oxygen saturations, blood pressure, adequacy of pulmonary ventilation, and response to care were monitored throughout the procedure. The Colonoscope was introduced through the anus and advanced to 10 cm into the ileum. The colonoscopy was performed without difficulty. The patient tolerated the procedure well. The quality of the bowel preparation was good. Findings: The perianal and digital rectal examinations were normal. Retroflexion in the right colon was performed. The colon (entire examined portion) appeared normal. The terminal ileum appeared normal. Biopsies for histology were taken with a cold forceps for evaluation of microscopic colitis. Impression: - Small internal hemorrhoids. - The entire colon is normal. - The examined portion of the ileum was normal. - Biopsies were taken with a cold forceps for evaluation of microscopic colitis. Recommendation: - Telephone endoscopist for pathology results in 2 weeks. - Repeat colonoscopy in 10 years for screening purposes. Procedure Code(s): --- Professional --- 93060, Colonoscopy, flexible; with biopsy, single or multiple Diagnosis Code(s): --- Professional --- Z12.11, Encounter for screening for malignant neoplasm of colon CPT copyright 2019 [employer]. All rights reserved. The codes documented in this report are preliminary and upon airplane inspector review may be revised to meet current compliance requirements. Bernard Walton MD Bernard Walton MD 10/16/2020 10:58:54 AM Electronically signed by Bernard Walton MD Number of Addenda: 0 Note Initiated On: 10/16/2020 10:26 AM Estimated Blood Loss: Estimated blood loss: none.
[2020-10-16 11:23] VITALS: BP 147/94
== END 2020-10-16 11:37 | disposition home or self-care (01) ==
LOC: M OPP 09:18
PROVIDERS: ATTEND Internal Medicine Gastroenterology
DX: Z12.11 Encounter for screening for malignant neoplasm of colon (principal); K64.8 Other hemorrhoids; K44.9 Diaphragmatic hernia without obstruction or gangrene; R11.10 Vomiting, unspecified; R12 Heartburn; K21.9 Gastro-esophageal reflux disease without esophagitis; R19.7 Diarrhea, unspecified; K31.9 Disease of stomach and duodenum, unspecified; F17.210 Nicotine dependence, cigarettes, uncomplicated

== ENCOUNTER → 2021-06-07 | Outpatient (CLI) | payer OTHER ==
[~2021-06-07] MED LIST changes: -NS 1,000 ML IV ONE
[2021-06-07 17:09] LABS: BASO # 0.1 10^3/uL (0.0-0.2); BASO % 0.9 % (0.0-1.0); EOS # 0.2 10^3/uL (0.0-0.5); EOS % 2.3 % (0.0-3.0); HEMATOCRIT 40.4 % (36.0-47.0); LYMPH # 2.8 10^3/uL (1.5-5.0); LYMPH % 32.7 % (24.0-44.0); MEAN CORPUSCULAR HEMOGLOBIN 30.1 pg (27.0-33.0); MEAN CORPUSCULAR HGB CONC 32.2 g/dl (32.0-36.5); MEAN CORPUSCULAR VOLUME 93.5 fl (80.0-96.0); MONO # 0.6 10^3/uL (0.0-0.8); MONO % 6.4 % (2.0-8.0); NEUTROPHILS # 4.9 10^3/uL (1.5-8.5); NEUTROPHILS % 57.2 % (36.0-66.0); PLATELET COUNT, AUTOMATED 309 10^3/uL (150-450); RED BLOOD COUNT 4.32 10^6/uL (4.00-5.40); WHITE BLOOD COUNT 8.6 10^3/uL (4.0-10.0)
[2021-06-07 17:28] LABS: C REACTIVE PROTEIN QUANTITATIV < 0.30 MG/DL (0.00-0.30); RHEUMATOID FACTOR QUANT < 10.0 IU/ML (<15.0); URIC ACID 5.9 MG/DL (2.6-6.0)
[2021-06-07 17:42] LABS: ERYTHROCYTE SEDIMENTATION RATE 8 mm/hr (0-30)
== END ==
LOC: M PLALAB 15:29
PROVIDERS: ATTEND Physician Assistant
DX: M25.541 Pain in joints of right hand (principal)

== ENCOUNTER → 2021-08-20 | Outpatient (CLI) | payer OTHER | LOC: M RAD 08:45 | PROVIDERS: ATTEND Family Medicine | DX: Z12.2 Encounter for screening for malignant neoplasm of respiratory organs (principal); F17.210 Nicotine dependence, cigarettes, uncomplicated; J84.10 Pulmonary fibrosis, unspecified; R91.1 Solitary pulmonary nodule ==

== ENCOUNTER → 2021-10-18 | Outpatient (REF) | payer OTHER | LOC: M SFHCWAGY 13:34 | PROVIDERS: ATTEND Obstetrics & Gynecology | DX: Z12.4 Encounter for screening for malignant neoplasm of cervix (principal); Z12.31 Encounter for screening mammogram for malignant neoplasm of breast ==

== ENCOUNTER → 2021-10-18 | Outpatient (CLI) | payer OTHER | LOC: M WHC 10:03 | PROVIDERS: ATTEND Obstetrics & Gynecology | DX: Z12.31 Encounter for screening mammogram for malignant neoplasm of breast (principal) ==

== ENCOUNTER → 2022-03-08 | Outpatient (CLI) | payer OTHER | LOC: M RAD 13:08 | PROVIDERS: ATTEND Internal Medicine Critical Care Medicine | DX: R91.8 Other nonspecific abnormal finding of lung field (principal); J84.10 Pulmonary fibrosis, unspecified ==

== ENCOUNTER → 2022-10-18 | Outpatient (CLI) | payer OTHER ==
[2022-10-18 10:47] LABS: BASO # 0.1 10^3/uL (0.0-0.2); BASO % 1.1 % (0.0-1.0); EOS # 0.2 10^3/uL (0.0-0.5); EOS % 2.1 % (0.0-3.0); HEMATOCRIT 41.5 % (36.0-47.0); HEMOGLOBIN 13.2 g/dl (12.0-15.5); LYMPH # 2.8 10^3/uL (1.5-5.0); MEAN CORPUSCULAR HEMOGLOBIN 29.7 pg (27.0-33.0); MEAN CORPUSCULAR HGB CONC 31.8 g/dl (32.0-36.5); MEAN CORPUSCULAR VOLUME 93.5 fl (80.0-96.0); MONO # 0.6 10^3/uL (0.0-0.8); NEUTROPHILS % 57.6 % (36.0-66.0); PLATELET COUNT, AUTOMATED 288 10^3/uL (150-450); RED BLOOD COUNT 4.44 10^6/uL (4.00-5.40); WHITE BLOOD COUNT 8.8 10^3/uL (4.0-10.0)
[2022-10-18 11:26] LABS: ALKALINE PHOSPHATASE 68 U/L (46-116); ALT/SGPT 27 U/L (7.0-40); AST/SGOT 28 U/L (<34); BILIRUBIN,TOTAL 0.4 MG/DL (0.3-1.2); BLOOD UREA NITROGEN 15 MG/DL (9-23); CALCIUM LEVEL 9.2 MG/DL (8.5-10.1); CARBON DIOXIDE LEVEL 27 MMOL/L (20-31); CHLORIDE LEVEL 105 MMOL/L (98-107); CHOLESTEROL LEVEL 154 MG/DL (<200); CHOLESTEROL RISK RATIO 2.31 (<5); CREATININE FOR GFR 0.94 MG/DL (0.55-1.30); FREE T4 1.02 NG/DL (0.89-1.76); GLOMERULAR FILTRATION RATE > 60.0 (>51); GLUCOSE, FASTING 80 MG/DL (60-100); HDL CHOLESTEROL 66.6 MG/DL (>40); LDL CHOLESTEROL 62.8 MG/DL (<100); NON-HDL-C 87.4 MG/DL; POTASSIUM SERUM 4.5 MMOL/L (3.5-5.1); SODIUM LEVEL 140 MMOL/L (136-145); THYROID STIMULATING HORMONE 1.838 uIU/ML (0.55-4.78); TOTAL 25(OH) VITAMIN D 60.1 NG/ML (20.0-100.0); TOTAL PROTEIN 7.2 G/DL (5.7-8.2); TRIGLYCERIDES LEVEL 123 MG/DL (<150)
== END ==
LOC: M LAB 08:48
PROVIDERS: ATTEND Physician Assistant
DX: K21.9 Gastro-esophageal reflux disease without esophagitis (principal); F17.210 Nicotine dependence, cigarettes, uncomplicated; F33.1 Major depressive disorder, recurrent, moderate; E55.9 Vitamin D deficiency, unspecified; R91.1 Solitary pulmonary nodule

== ENCOUNTER → 2022-10-18 | Outpatient (CLI) | payer OTHER | LOC: M CARPUL 08:46 | PROVIDERS: ATTEND Internal Medicine Critical Care Medicine | DX: R06.02 Shortness of breath (principal) ==

== ENCOUNTER → 2022-10-24 | Outpatient (REF) | payer OTHER | LOC: M SFHCWAGY 17:34 | PROVIDERS: ATTEND Obstetrics & Gynecology | DX: Z12.4 Encounter for screening for malignant neoplasm of cervix (principal) ==

== ENCOUNTER → 2022-10-24 | Outpatient (CLI) | payer OTHER | LOC: M WHC 14:16 | PROVIDERS: ATTEND Obstetrics & Gynecology | DX: Z12.31 Encounter for screening mammogram for malignant neoplasm of breast (principal) ==

== ENCOUNTER → 2022-11-29 | Outpatient (REF) | payer OTHER | LOC: M SFHCWAGY 17:31 | PROVIDERS: ATTEND Obstetrics & Gynecology | DX: R87.810 Cervical high risk human papillomavirus (HPV) DNA test positive (principal) ==

== ENCOUNTER → 2023-08-24 | Outpatient (CLI) | payer OTHER | LOC: M RAD 09:16 | PROVIDERS: ATTEND Internal Medicine Critical Care Medicine | DX: R91.1 Solitary pulmonary nodule (principal); K44.9 Diaphragmatic hernia without obstruction or gangrene; J84.9 Interstitial pulmonary disease, unspecified; J47.9 Bronchiectasis, uncomplicated; I71.21 Aneurysm of the ascending aorta, without rupture ==

== ENCOUNTER → 2023-09-12 | Outpatient (CLI) | payer OTHER | LOC: M PLARAD 08:23 | PROVIDERS: ATTEND Internal Medicine Critical Care Medicine | DX: R91.1 Solitary pulmonary nodule (principal) | CPT/HCPCS: 78815; A9552 ==